=== PATIENT | female | born 1980 ===

== ENCOUNTER 2018-08-26 13:00 | Inpatient (IN) | payer OTHER ==
[~2018-08-26] VITALS: Ht 167.6 cm; Wt 65.8 kg
[2018-09-10] MEDS ORDERED: PRENATAL TABLE1 EACH PO (08:14)
== END 2018-09-12 15:00 | disposition home or self-care (01) | DRG 807 ==
LOC: OB/GYN 09-06 13:00 → LDR 09-10 07:55 → OB/GYN 09-10 07:55
PROVIDERS: ADMIT Obstetrics & Gynecology
PROC: 10E0XZZ Delivery of Products of Conception, External Approach (ICD-10-PCS; principal; 2018-09-10)
PROC: 0W8NXZZ Division of Female Perineum, External Approach (ICD-10-PCS; 2018-09-10)
PROC: 4A1HXCZ Monitoring of Products of Conception, Cardiac Rate, External Approach (ICD-10-PCS; 2018-09-10)
DX: O80 Encounter for full-term uncomplicated delivery (principal); Z37.0 Single live birth; Z3A.40 40 weeks gestation of pregnancy

== ENCOUNTER 2023-05-19 08:57 | Outpatient (CLI) | payer OTHER ==
[~2023-05-19 08:57] MED LIST: PRENATAL TABLE1 EACH PO
== END 2023-05-19 09:12 | disposition home or self-care (01) ==
LOC: MAMO-SONO 08:57
PROVIDERS: ATTEND Obstetrics & Gynecology
DX: N64.51 Induration of breast (principal); N83.291 Other ovarian cyst, right side

== ENCOUNTER 2024-09-09 14:16 | Outpatient (CLI) | payer OTHER | END 2024-09-09 14:22 | disposition home or self-care (01) | LOC: MAMO-SONO 14:16 | PROVIDERS: ATTEND Student in an Organized Health Care Education/Training Program | DX: N64.4 Mastodynia (principal) ==

== ENCOUNTER 2024-09-15 13:22 | Outpatient (CLI) | payer OTHER | END 2024-09-15 13:25 | disposition home or self-care (01) | LOC: SONOGRAMA 13:22 | PROVIDERS: ATTEND Student in an Organized Health Care Education/Training Program | DX: N18.2 Chronic kidney disease, stage 2 (mild) (principal) ==